=== PATIENT | female | born 1955 | race Hispanic/Latino ===

== ENCOUNTER 2018-11-14 07:43 | Day surgery (SDC) | payer OTHER ==
[2018-11-12 12:23] VITALS: BMI 28.8
[2018-11-14] MEDS ORDERED: Succinylcholine Chloride 20 mg/ml Syr (5 ml) IV ONE (11:33)
[2018-11-14] MEDS ORDERED: Rocuronium 10 mg/ml (10 ml) ONE ×2 (11:33→12:22)
[2018-11-14] MEDS ORDERED: Midazolam 2 MG/2 ML VIAL ONE (11:33)
[2018-11-14] MEDS ORDERED: Propofol 10 mg/ml Inj (20 ML) ONE (11:34)
[2018-11-14] MEDS ORDERED: ePHEDrine 50 mg/ml Inj ONE (11:47)
[2018-11-14] MEDS ORDERED: Albuterol HFA 90 mcg/actuation (8 g) ONE (12:12)
[2018-11-14] MEDS: ceFAZolin 1 gm in NS 2 GM/200 ML BAG IVPB ONE ×2 (12:15→12:39)
[2018-11-14] MEDS ORDERED: Neostigmine 1:1000 (1 mg/ml) Inj ONE (14:14)
[2018-11-14] MEDS ORDERED: Bupivacaine HCl 0.5% PF (10 ml) Inj ONE ×2 (14:35)
[2018-11-14] MEDS: HYDROmorphone 0.5 mg/0.5 ml ISec IVP PRN ×4 (14:42→16:05)
[2018-11-14] MEDS ORDERED: HYDROmorphone 0.5 mg/0.5 ml ISec ONE (14:44)
--- NOTE | 2018-11-14 14:53 | PCM.ANESB7 ---
Adductor Canal Block - Adductor Canal Block Date of Procedure: 11/14/18 Anesthiologist: antonietta Procedure Performed: Adductor Canal Block Right - Procedure Adductor Canal Block: The procedure was explained to the patient that it is for the post-operative pain management. Consent was obtained after a thorough discussion with the patient regarding the benefits and possible complications of local anesthetic adductor canal block of the femoral nerve. Standard monitors, as defined by the ASA, were applied to the patient. Time-out was held with the circulating nurse to confirm the appropriate block. After applying supplemental oxygen and administering IV Sedation as needed, the patient was placed in supine position with and the operative leg was flexed slightly at the knee and externally rotated as needed, and was kept anatomically stable. The mid-thigh of the right__ lower extremity was exposed. The ultrasound transducer was then applied transversely along the medial aspect, about midway down the thigh and the femoral artery and vein were identified in appropriate relation with the sartorius muscle. At this time, the femoral nerve was visualized lateral to the femoral artery within the canal. After thorough identification, this area area was prepped with Chloroprep solution three times and 1 % Lidocaine was injected subcutaneously for topical anesthesia. At this point, a #22 gauge Stimuplex 4-inch needle was inserted in-plane in a [id number] orientation, and advanced toward the femoral nerve. Advancement was performed carefully under direct ultrasound visualization. After negative aspiration, _5____cc of _.5____% bupiviciane was injected and this was followed with 15_ cc of _.5 % bupviciaine . Under ultrasound guidance the local anesthetics were observed spreading around the femoral nerve. The needle was removed intact and sterile dressing was applied. The patient had stable vital signs, was conscious and in no apparent distress. The patient tolerated the femoral nerve block well with stable vital signs and was prepared for subsequent surgery
[2018-11-14 16:37] VITALS: O2SAT 96
[2018-11-14 17:04] VITALS: RESP 16
[2018-11-14 18:17] VITALS: BP 119/77; PULSE 75; TEMP 97.6
--- NOTE | 2018-11-15 04:46 | PCM.SURG1 ---
Surgeon's Initial Post Op Note - Surgeon's Notes Surgeon: Meliton Craven MD Wine Bottle Inspector: Desiree Dutton PA-C Type of Anesthesia: General Endo, Block [facility] Pre-Operative Diagnosis: Right knee: #1 medial meniscal tear. #2 lateral meniscal tear. #3 partial ACL tear (unstable). #4 chondromalacia. #5 synovitis Operative Findings: Right knee: #1 medial meniscal tear (2 zones of injury= white-red zone complex tear at mid-body to posterior horn, not repairable/ peripheral red-red zone 3 cm tear at menisco-capsulr junction, repairable). #2 lateral meniscal tear (2 zones of injury= white-white zone free edge complex tear posterior horn to mid-body, not repairable/ peripheral red-red zone 3 cm tear at menisco-capsulr junction, repairable). #3 partial ACL tear (complete tear of AM bundle with grade 3 rotational instability and grade 2 ant drawer/David, repairable). #4 chondromalacia (focal area of grade 3 chondromalacia WB MFC, medial aspect, large unstable flap, no full thickness defect). #5 synovitis all 3 compartments. #6 hypertorphic, inflamed fat pad (causing anterior impingement). #7 symptomatic medial plica Post-Operative Diagnosis: Right knee: #1 medial meniscal tear (2 zones of injury= white-red zone complex tear at mid-body to posterior horn, not repairable/ peripheral red-red zone 3 cm tear at menisco-capsulr junction, repairable). #2 lateral meniscal tear (2 zones of injury= white-white zone free edge complex tear posterior horn to mid-body, not repairable/ peripheral red-red zone 3 cm tear at menisco-capsulr junction, repairable). #3 partial ACL tear (complete tear of AM bundle with grade 3 rotational instability and grade 2 ant drawer/David, repairable). #4 chondromalacia (focal area of grade 3 chondromalacia WB MFC, medial aspect, large unstable flap, no full thickness defect). #5 synovitis all 3 compartments. #6 hypertorphic, inflamed fat pad (causing anterior impingement). #7 symptomatic medial plica Operation Performed: Right knee Arthroscopic: #1 primary ACL repair. #2 all inside medial meniscal repair. #3 partial lateral menisectomy (w/stabilization- rip stop). #4 extensive synovectomy (synovectomy aa 3 compartments, debridement fat pad, resection plica). #5 chondroplasty MFC. #6 intra-articular PRP injection Specimen/Specimens Removed: specimen= none. tourniquet time= 0min. complications= none. Implants= [employer] fiberwire and 4.75 biocomposite swivel lock anchor x1 for ACL repair. [employer] meniscal repair system, 8 implants for MMR, (2 kits), 4 implants for LM stabilization after PLM, (1 Kit) Estimated Blood Loss: EBL {In ML}: 3 Blood Products Given: N/A Drains Used: No Drains Post-Op Condition: Good Date of Surgery/Procedure: 11/14/18 Time of Surgery/Procedure: 13:00
--- NOTE | 2018-12-03 13:05 | OP ---
PROCEDURE DATE: 11/14/2018 PREOPERATIVE DIAGNOSES: Right knee: 1. Medial meniscal tear. 2. Lateral meniscal tear. 3. Partial anterior cruciate ligament tear (grade 2 unstable). 4. Chondromalacia. 5. Synovitis. POSTOPERATIVE DIAGNOSES: Right knee: 1. Medial meniscal tear (2 zones of injury = white-red zone complex tear at mid body to posterior horn, not repairable/peripheral red-red zone, 3 cm tear at the meniscocapsular junction, repairable). 2. Lateral meniscal tear (2 zones of injury = white-white zone free edge complex tear, posterior horn to mid body, not repairable/peripheral red-red zone, 3 cm tear at posterior horn periphery resulting in significant hypermobility of posterior horn lateral meniscus, amenable to stabilization). 3. Partial anterior cruciate ligament tear (complete tear of anterior medial bundle with grade 3 rotational instability and grade 2 anterior drawer/David, good quality anteromedial bundle tissue, amenable to primary repair). 4. Chondromalacia (focal area of grade 3 chondromalacia, weightbearing aspect of medial femoral condyle with a large unstable chondral flap, no full thickness defect seen). 5. Synovitis, all 3 compartments. 6. Hypertrophic, inflamed fat pad causing anterior impingement/patellofemoral impingement. 7. Symptomatic medial plica band. PROCEDURE: Right knee arthroscopic. 1. Primary anterior cruciate ligament repair. 2. All-inside medial meniscal repair. 3. Partial lateral meniscectomy (with concurrent stabilization remnant posterior horn tissue). 4. Extensive synovectomy, all three compartments. 5. Debridement and resection, hypertrophic inflamed fat pad. 6. Debridement and resection of symptomatic medial plica band. 7. Chondroplasty, medial femoral condyle. 8. Arthroscopic intraarticular platelet-rich plasma injection. SURGEON: Meliton Craven MD MATTRESS FILLING MACHINE TENDER: Desiree Dutton PA-C JUSTIFICATION FOR MATTRESS FILLING MACHINE TENDER: Desiree Dutton is a certified physician freezer assistant whose skilled surgical services were an absolute necessity for successful completion of the procedure as he provided skilled surgical assistance with positioning of the patient, positioning of extremity, management of surgical lane, retraction of neurovascular structures, facilitating passage of suture and access for primary ACL repair, facilitating placement of ACL repair fixation/anchors, facilitating all inside medial meniscus repair and management of suture, facilitating lateral meniscus posterior horn stabilization after partial lateral meniscectomy, handling of arthroscopic equipment and management of surgical lane, wound closure, fitting and placement of postop hinged-knee brace. Desiree Dutton was present for the entire case and was an absolute necessity for successful completion of the procedure as a skilled surgical technician. ANESTHESIA: General endotracheal anesthesia with a postop regional nerve block placed by anesthesia staff and PACU. SPECIMENS: None. TOURNIQUET TIME: Zero minutes. COMPLICATIONS: None. ESTIMATED BLOOD LOSS: 3 mL. DRAINS: None. DISPOSITION: The patient was extubated and transferred to the PACU in stable condition and tolerated the procedure well. IMPLANTS: 1. [employer] FiberWire and 4.75 [employer]posite SwiveLock anchor knotless x1 for ACL repair. 2. [employer]: Sequent All-Inside meniscal repair system, 8 implants used for medial meniscus repair (2 kits opened), 4 implants used for lateral meniscus stabilization after partial lateral meniscectomy, (1 kit opened). INDICATIONS FOR SURGERY: The patient is a 63-year-old female with a past medical history significant for GERD, anxiety who presented to the office for the first time with right knee pain and swelling with instability on 09/23/2018. She stated that her right knee pain, swelling, instability began on 09/07/2018. She could not recall a specific traumatic event on that day, but states that beginning on 09/07/2018, she developed increasing progressive right knee pain that began to interfere with her activity level and ability to go up and downstairs. When she presented to the office at the first time on 09/23/2018, examination of right knee showed medial and lateral joint line tenderness to palpation with positive medial lateral James representing possible medial and lateral meniscal tears, there was significant ACL instability with 2+ David, 2+ anterior drawer and external rotations with firm endpoints, grade 2 pivot shift, full range of motion obtained albeit painful. She was very frustrated with her knee pain as it became a significant negative impact on her quality of life. We began conservative treatment for the right knee, which included placement and fitting in a conservative treatment consisting of fitting and placement in an [id number] ACL brace, intraarticular cortisone mixture injection on 09/23/2018, referral to physical therapy and home exercise program, anti-inflammatory medications in the form of Mobic as well as anti-inflammatory compound pain cream. she was referred for MRI right knee done at [facility] on 09/27/2018 that was read as: #1 oblique tear posterior horn and body of medial meniscus #2 grade 2 sprain of ACL and MCL #3 mild to moderate articular chondrosis most pronounced within lateral aspect of patellofemoral compartment with intermediate grade thinning #4 small joint effusion and small Cross's cyst On my review of the MRI, the ACL displayed significant signal change throughout the intra-articular course of both anterior-medial and posterior-lateral bundles. Tracing the bundles proximally, it appeared that the anterior-medial bundle was completely avulsed from the proximal femoral insertion at the lateral femoral condyle while the posterior-lateral bundle appeared attenuated but was attached proximally at the [place] insertion point at the lateral femoral condyle. After undergoing the intraarticular cortisone mixture injection, she reported near complete resolution of pain and scientology of painless range of motion and function that lasted approximately 3 weeks. After that point, the pain progressively worsened, that returned to baseline level of consistently being rated 8 to 9/10. When she was wearing the [id number] ACL brace, she stated that she had good stability and was able to perform all the activities that she would like to including exercise and walking and other recreational activities. Once the brace was not on, she complained of significant instability and the sensation of her right knee giving out with multiple episodes of almost falling. When she followed up in the office in 10/2018, she was very frustrated and stated that she had no improvement overall since beginning treatment and that physical therapy at this point was making her pain significantly worse. She was refusing to continue physical therapy at this point due to the amount of pain it was causing. She was at that point very frustrated with her lack of progress and her right knee pain and instability became a significant negative impact on her quality of life as well as negative impact on ADLs. She was indicated for arthroscopic surgery in the form of right knee arthroscopic medial and lateral meniscal repairs versus partial meniscectomy, possible primary ACL repair depending on the quality of ACL tissue present if it is amenable to repair, extensive synovectomy and chondroplasty versus microfracture/joint preservation chondral treatment and all related indicated arthroscopic procedures. The risks, benefits and alternatives to the procedure were discussed at length with the patient with the risks including but not limited to infection, neurovascular damage, need for further surgery, development of blood clots including DVT and PE, failure of repair, rerupture ACL, stiffness, development of chronic pain and disability, need for further surgery, inability to return to preinjury level of activity and sports, anesthesia reactions including . After answering all of her questions, she stated that she had a good understanding of the procedure and the risks and wished to proceed with surgery. She watched surgical animation videos and diagnosis animation videos and stated that she had a good understanding of the procedure as well as her diagnosis. I reviewed at length with her the postop rehabilitation protocol and she stated that she had a good understanding of the need for compliance with the rehab protocol in order to maximize their chances of having a successful outcome after surgery. We discussed DVT prophylaxis options, and after reviewing her options, we agreed to proceed with Lovenox as DVT prophylaxis starting postoperative day #1 as 40 mg subcutaneous injection for 2 weeks postoperative followed by switching to aspirin 325 twice daily for a total of 4 weeks. She was referred to her primary care physician for a preoperative medical evaluation and PATs, and the procedure was scheduled at [facility] on 11/14/2018. PROCEDURE IN DETAIL: The patient was identified in the preoperative holding area, and the right knee was marked for surgery. As described above, the risks, benefits, and alternatives of the procedure were discussed at length with the patient and informed consent was obtained. After brief discussion with anesthesia staff, the patient was taken to the operating room and placed on a well-padded operating room table with all bony prominences and superficial neurovascular structures well padded. Initial time-out was done with the surgeon, anesthesia staff, operating room staff all in agreement with the patient, procedure being done and extremity being operated on. General anesthesia was administered without difficulty or complications. Examination under anesthesia was then carried out. EXAMINATION UNDER ANESTHESIA: Right knee with no swelling, no warmth, no erythema. Skin intact. Full range of motion compared to contralateral knee, significant ACL instability with 3+ anterior drawer and external rotation, 2+ David with endpoints, 2+ anterior head of merchandise buying neutral and internal rotation with a firm endpoint, 3+ pivot shift, negative posterior drawer, negative reverse David, negative reverse pivot shift, negative opening to medial or lateral joint line at 0 or 30 degrees varus or valgus stress. Patella with normal tracking with no evidence of instability, no crepitance. There was reproducible palpable click at the inferior medial aspect of the patella engaging the patella at 30 degrees of flexion throughout flexion arc representing a symptomatic medial plica band. Negative posterolateral corner drawer, negative dial test, negative recurvatum. Overall, there was significant rotational instability of this partial ACL tear. CONTINUATION OF PROCEDURE: The tourniquet was placed high on the right thigh, but never inflated. Right lower extremity was prepped and draped in a standard sterile fashion. A final time-out was done with the surgeon, anesthesia staff, OR staff, all in agreement with the patient, procedure being done, and extremity being operated on. Perioperative IV antibiotics were administered. A 50 mL of normal saline was used to insufflate the knee joint. Anterolateral portal was created with stab incision through the skin down to subcutaneous tissue down to the level of the capsule. Blunt arthroscopic trocar and cannula were inserted into the suprapatellar pouch, and insufflation with arthroscopic fluid was begun. Arthroscopic camera was inserted, and with the use of spinal needle localization, anterior medial portal location was identified and created with stab incision to skin down to subcutaneous tissue down to the level of capsule. An accessory cannula was inserted through the anteromedial portal, and the knee joint was copiously irrigated for removal of synovial debris and better visualization. With the use of an arthroscopic probe, a diagnostic arthroscopy was then carried out. DIAGNOSTIC ARTHROSCOPY: Attention was first turned towards the suprapatellar pouch where there was no evidence of adhesions or loose body, patellar femoral joint exhibited intact, patella and trochlea cartilage with chondromalacia grade 1 at the most. As patella was well centered within the trochlea with no evidence of instability or subluxation on dynamic testing. Attention was then turned towards the medial gutters where there was no evidence of loose bodies, but there was obvious thickened hypertrophic inflamed symptomatic medial plica band causing friction with the medial femoral condyle chondral surface extending from the inferior medial aspect of the patella to the medial retinaculum. Attention was then turned towards the medial compartment where intact medial tibial plateau cartilage/chondral surface was seen. Medial femoral condyle had global grade 1 chondromalacia with a focal area of grade 3 chondromalacia at the medial aspect of the weightbearing zone with a large unstable displaced chondral flap (measuring 3 mm x 5 mm), no full-thickness chondral defects seen. The medial meniscus upon careful evaluation exhibited 2 zones of injury: #1 peripheral red-red zone posterior horn tear measuring approximately 2 cm in length at the meniscal-capsular junction that was amenable to repair with good quality meniscal tissue present. #2 complex free edge tear at the white-white zone starting at the mid body and extending posteriorly to the posterior horn and root that was not amendable to repair. Attention was then turned towards the intercondylar notch, and the PCL was evaluated and found to be intact. ACL was carefully evaluated in detail, and there were significant tears in line with the fibers with ACL, buckling seen and attenuation. After careful evaluation and tracing of both bundles proximally individually, to the lateral femoral condyle insertions, it was obvious that this was a complete avulsion anterior-medial bundle while the posterior- lateral bundle showed only partial tear proximally at the lateral femoral condyle [place] insertion/footprint. The anterior medial bundle avulsion fibers/[place] remnant fibers were of good quality Scarred down to the posterior capsule and PCL. The posterior lateral bundle fibers also appeared to be of good quality and Maintaining good function and tightness. this explains the grade 3 instability in the rotational plane while grade 2 instability with a firm endpoint on anterior drawer. Attention was then turned towards the lateral compartment, careful evaluation with the arthroscopic probe at the lateral meniscus yielded 2 zones of injury: #1 complex free edge white-white zone tearing extending from the posterior horn to the mid body, by definition not amenable to repair. #2 posterior horn exhibited significant hypermobility, the residual remnant posterior horn fibers Exhibited a peripheral red-red zone tear anterior to the popliteal hiatus extending anterior to the posterior horn-mid body junction, good-quality remnant meniscal tissue amenable to stabilization/repair. This tear pattern resulted in significant hypermobility of the posterior horn of the lateral meniscus with ability to sublux the posterior horn anteriorly beyond the midpoint of the lateral femoral condyle almost touching the anterior horn lateral meniscus. The lateral femoral condyle and lateral tibial plateau exhibited intact cartilage. Throughout all three compartments of the knee, there was significant hypertrophic inflamed synovitis. At the anterior aspect of the knee, there was hypertrophic and inflamed anterior fat pad causing significant anterior and patellofemoral impingement. CONTINUATION OF PROCEDURE: ARTHROSCOPIC PARTIAL LATERAL MENISCECTOMY with concomitant stabilization remnant tissue: With the use of arthroscopic shaver, radiofrequency ablation, and meniscal biters, a partial lateral meniscectomy was carried out at the complex free edge tear, white-white zone injury starting at the posterior horn and working anterior to the anterior aspect of the mid body. Once a smooth contour was established and all unstable/complex/torn lateral meniscal tissue was removed, approximately 10-15% of the lateral meniscus was resected overall. As stated before, there was significant hypermobility present with a peripheral red-red zone tear extending from the anterior aspect of the popliteal hiatus, working its way anteriorly into the mid body-posterior horn junction. The remnant posterior horn meniscal tissue appeared to be of good quality, and an attempt at stabilization of the posterior horn was carried out. With the use of the [employer] all-inside meniscal repair system, four implants were placed in total at the posterior horn just anterior to the popliteal hiatus to restore stability. Prior to the stabilization, the entire posterior horn of lateral meniscus was able to be subluxed past the midpoint of the lateral femoral condyle into the anterior aspect of the knee joints. The repair/stabilization was carried out with placement of four implants with good capsular-sided fixation resulting in three vertical mattresses sutures, placed just anterior to the popliteal hiatus with good stability achieved. With the use of arthroscopic probe, this was tested and indeed the stability to the remnant lateral meniscus posterior horn tissue was established, and more normal physiologic motion of the lateral meniscus was seen with inability to sublux the posterior horn beyond the midpoint of the lateral femoral condyle. the area of stabilized posterior lateral meniscus also behaved as a rip stop hopefully preventing propagation of future secondary tears through the remaining lateral meniscus tissue that would essentially result in loss of potentially the rest of the lateral meniscus. the mainstay of treatment for the lateral meniscus injury was the arthroscopic partial lateral meniscectomy. The posterior horn stabilization was performed as a salvage procedure to preserve the remnant posterior horn lateral meniscal tissue and prevention from future secondary tears/loss of further lateral meniscal tissue. ARTHROSCOPIC ALL-INSIDE MEDIAL MENISCAL REPAIR: With the use of arthroscopic shaver, radiofrequency ablation, and meniscal biters, a very conservative partial medial meniscectomy was carried resecting the torn white-white zone free edge fibers of the medial meniscus mid body to posterior horn that were not amendable to repair. Once a smooth contour was established and the partial medial meniscectomy was completed less than 3-5% of the medial meniscus was resected overall. As stated before, there was a 3 cm peripheral red-red zone posterior horn meniscal capsular separation with good quality meniscal tissue present. With the use of the [email or web address] all-inside meniscal repair system and all-inside medial meniscus repair was carried out with placement of eight implants in total. We started with placement of four implants at the superior aspect of the medial meniscus posterior horn, resulting in good capsular-sided fixation and three horizontal mattress sutures reducing and stabilizing the posterior horn to the posterior medial capsule. These steps were then repeated again at the inferior aspect of the posterior horn to restore adequate hoop stress and reinforce the superior surface medial meniscal repair. With the use of arthroscopic probe, the construct was tested and indeed a successful stable all-inside medial meniscal repair was carried out. ARTHROSCOPIC PRIMARY ANTERIOR CRUCIATE LIGAMENT REPAIR: With the use of arthroscopic shaver and radiofrequency ablation, the poor quality torn, degenerative anterior-medial and posterior-lateral bundle fibers were resected and debrided in a very conservative manner leaving as much [place] ACL fibers as possible to incorporate into the primary ACL repair. Overlying ligamentum and synovium over the lateral femoral condyle and insertion of the anterior medial and posterior lateral bundles at the lateral femoral condyle was debrided and marked. The anteromedial and posterolateral bundle fibers were identified and visually. The posterior wall of the lateral femoral condyle was also visualized and noted to avoid posterior breakout, the posterior border of our working area for placement of ACL repair anchor was established. only the anterior medial bundle of the ACL partial tear was indicated for primary repair. With the use of the meniscal scorpion suture passer from [employer], we began with passage of suture through the anterior medial bundle. A #2 FiberWire suture was passed starting at the distal aspect of the anterior medial bundle at the tibial insertion and working our way proximally to the femoral side of the anterior medial bundle. Approximately 4 to 5 passes with the #2 FiberWire sutures zigzagging through the anterior medial bundle work carried out. To reinforce the construct 1 #2 FiberWire cinch suture was also passed mid substance with a good bite of the anterior medial bundle. An accessory incision was made superior just inferior to the inferior pole of the patella as a small 1 cm stab incision to pass the sutures from the posterior lateral bundle and maintain good suture management. The anterior medial portal had been expanded and a PassPort cannula had been placed to also facilitate good suture management and avoid soft tissue bridge. Optimal insertion points at the lateral femoral condyle with at the [place] femoral insertion footprint for anterior medial bundle was identified. A 4.75 BioComposite SwiveLock knotless anchor from [employer] was selected for the anterior medial single bundle ACL primary repair. With the use of the punch, the virologist hole at the insertion site at the [place] anterior medial bundle insertion at the lateral femoral condyle was prepared, and the FiberWire suture from the anterior medial bundle repair were passed through the SwiveLock anchor and the anchor was carefully and successfully placed with good bony fixation achieved at the lateral femoral condyle, reducing and repairing the anterior medial bundle back to its [place] anatomical femoral proximal insertion point with no gap/anterior medial ACL fibers brought directly to contact and compression at the lateral femoral condyle wall. With the use arthroscopic probe, the tension of the ACL was evaluated and indeed good tension was achieved with no residual attenuation or ACL buckling present. Anterior medial bundle was brought directly up to its [place] proximal femoral insertion footprint with no gap present and good tension achieved. Clinically, ACL stability had been restored with the primary ACL repair with resulting negative anterior drawer, negative David, negative pivot shift. the posterior lateral bundle exhibited good stability and tightness of ACL fibers. There is no indication to perform repair on the posterior lateral bundle. this was confirmed with a stable exam resulting after single bundle repair/anterior medial bundle primary repair. ARTHROSCOPIC CHONDROPLASTY MEDIAL FEMORAL CONDYLE: The medial femoral condyle displayed a focal area of grade 3 chondromalacia with a large unstable chondral flap measuring 3 mm x 5 mm at the weightbearing surface medial aspect of the medial femoral condyle. There was no full-thickness chondral defect seen on careful evaluation of the entire chondral surface all 3 compartments. With the use of arthroscopic shaver and radiofrequency ablation, chondroplasty of the focal zone of injury medial femoral condyle was carried out reestablishing a smooth chondral surface and resecting the unstable chondral flap. ARTHROSCOPIC EXTENSIVE SYNOVECTOMY: With the use of arthroscopic shaver and radiofrequency ablation, an extensive synovectomy was carried out beyond what is considered usual and customary for better visualization during arthroscopic surgery. A significant amount of surgical time was dedicated to this portion of the procedure, as the extensive synovectomy was utilized to resect and debride and perform a synovectomy in all three compartments of the knee while maintaining good hemostasis. The medial and lateral symptomatic plica bands were also resected and debrided successfully. The hypertrophic and inflamed anterior fat pad causing anterior impingement and patellar femoral impingement was resected and debrided, all while maintaining good hemostasis. Again, this extensive synovectomy was carried out beyond what is normally utilized for better visualization during basic arthroscopic surgery and a significant amount of surgical time was dedicated to performing the successful extensive synovectomy and completing the treatment tasks of resecting the symptomatic hypertrophic medial and lateral plica bands, synovectomy of all three compartments, debridement of the hypertrophic fat pad that was causing anterior and patellofemoral impingement. Final arthroscopic imaging were taken of the successful ACL repair of anterior medial bundle, all-inside medial meniscal repair, partial lateral meniscectomy with stabilization, chondroplasty medial femoral condyle, extensive synovectomy all 3 compartments, resection and debridement hypertrophic, inflamed anterior fat pad, resection and debridement symptomatic medial plica band. All arthroscopic debris and fluid was removed from the knee joint. ARTHROSCOPIC INTRAARTICULAR PLATELET-RICH PLASMA INJECTION: With the help of anesthesia staff, a peripheral venous stick was carried out and the venous blood was spun in the [employer] yielding 10 mL of PRP overall. The 10 mL of PRP was injected under direct arthroscopic visualization in the intra-articular position within the right knee. The arthroscopic portals were then reapproximated with 2-0 Vicryl suture for deep tissue followed by 3-0 Monocryl suture for skin. Sterile dressings were applied, followed by a layer of sterile cast padding from the toes up to the superior thigh, following by layer of compressive TONA wrap from the toes up to the superior thigh. A postop hinged knee brace provided by my office was then fitted and placed on the patient's right lower extremity. The brace was placed out of absolute medical necessity to protect and facilitate successful healing of the ACL repair, meniscus repairs, chondroplasty, an extensive synovectomy. With the postop hinged knee brace locked at 0 degrees extension, the patient would be able to be weightbearing as tolerated. She will also be able to unlock the brace and work on range of motion without endangering her ACL repair or meniscus repairs when she is not ambulating and weightbearing. Once the postop hinged knee brace was fitted and placed on the patient and locked at 0 degrees extension, she was then extubated and transferred to PACU in stable condition and tolerated the procedure well. JUSTIFICATION FOR BILLING AND CODIN. Arthroscopic primary ACL repair was successful carried out and therefore was coded and billed with CPT code 63110. 2. All-inside medial meniscal repair was carried out successfully and therefore was coded and billed with CPT code 77692. 3. Arthroscopic partial lateral meniscectomy was carried out resecting 10-15% of the lateral meniscus with a stabilization of the remnant posterior horn fibers carried out as well To stabilize the posterior horn and reduce the hypermobility/instability present. The stabilization posterior horn with also function as salvage/preventative treatment hopefully preventing propagation of future secondary tear and promoting preservation of the posterior horn/lateral meniscus overall. The main stay of treatment for the lateral meniscus injury was partial lateral meniscectomy, and therefore, partial lateral meniscectomy was coded and billed with CPT code 11378. 4. arthroscopic chondroplasty medial femoral condyle was carried out successfully in the same compartment as the medial meniscal repair code and therefore should be accepted as a separate part of the procedure to be coded and billed with CPT code 47214. the restriction to coding for chondroplasty deals with coding for both partial meniscectomy and chondroplasty in the same compartment as chondroplasty is considered inclusive to the partial meniscectomy code if performed in the same compartment. During this surgery, the medial meniscal repair and the medial femoral condyle chondroplasty were performed in the same compartment and should not have any bundling issues. The partial lateral meniscectomy was performed in another compartment and therefore should not cause any restrictions on chondroplasty billing in medial compartment. 6. An extensive synovectomy was carried out beyond what is considered usual and customary for better visualization during arthroscopic surgery with a significant amount of surgical time dedicated to arthroscopic synovectomy of all three compartments with resection and debridement of symptomatic medial and lateral plica bands as well as resection and debridement of the symptomatic hypertrophic inflamed fat pad causing anterior and patella femoral impingement. Therefore, extensive synovectomy was coded and billed, CPT 57175. 7. Intraarticular platelet-rich plasma injection was placed at the end of the procedure under direct arthroscopic visualization, and therefore was coded and billed, CPT 0232T. 8. A postop hinged knee brace provided by my office was fitted and placed on the patient at the end of the procedure, placed out of absolute medical necessity to protect and maximize the chances of successful healing of multiple Parts of the surgery including the primary ACL repair, medial meniscus repair, lateral meniscus stabilization after partial lateral meniscectomy. Therefore, the postop hinged knee brace provided by my office and dispensed on the same date of service/date of surgery, fitted and placed on the right lower extremity/right knee of the patient was coded and billed as DME code of [id number]. DISPOSITION: The patient will be discharged home once she is recovered from anesthesia as same day outpatient surgery. She can be weightbearing as tolerated to the right lower extremity with the postop hinged knee brace locked at 0 degrees extension at all times for the first 6 weeks postop. She was given a prescription for Percocet for pain control. She was given a prescription for Lovenox 40 mg subcutaneous injection as DVT prophylaxis starting postoperative day #1 and continuing for two weeks postoperatively. She will contact me directly with any questions or concerns. She is instructed to keep the dressings clean, dry, and intact as well as the brace on at all times. She will follow up in my office at [facility] within one week and already has her postoperative appointment setup. Meliton Craven MD [facility]
== END 2018-11-14 18:30 | disposition home or self-care (01) ==
LOC: C.SDS 07:43
PROVIDERS: ATTEND Student in an Organized Health Care Education/Training Program
DX: S83.511A Sprain of anterior cruciate ligament of right knee, initial encounter (principal); S83.231A Complex tear of medial meniscus, current injury, right knee, initial encounter; M94.261 Chondromalacia, right knee; M67.861 Other specified disorders of synovium, right knee; S83.289A Other tear of lateral meniscus, current injury, unspecified knee, initial encounter; M65.9 Synovitis and tenosynovitis, unspecified
CPT/HCPCS: 29876; 29880; 29888; C1713; J0690; J1170; J2001; J2250; J2405; J2704; J2710; J3010